=== PATIENT | female | born 1965 | race Caucasian/White ===

== ENCOUNTER 2017-08-26 02:22 | Emergency (ER) | payer BC ==
[~2017-08-26] VITALS: Ht 162.6 cm; Wt 69.9 kg
[~2017-08-26 02:22] MED LIST: BUPR100T3 PO; GABA600T7 PO; LORA-476 PO; OXYC60TE PO; PANT40EC PO; PREMARIN PO; QUET100T PO; SYN.1 PO; URSO300C14 PO; VYBRID PO
[2017-08-26 02:33] VITALS: BP 146/70
--- NOTE | 2017-08-26 02:35 | NUR ---
Lesley rose in [facility] - 08/26/17 at 0236 by XAVIER PT TAKEN TO BED 3
--- NOTE | 2017-08-26 02:44 | NUR ---
PT TAKEN TO BED 3
[2017-08-26] MEDS ORDERED: KETOROLAC 30 MG/ML VIAL IM ONE (02:50)
--- NOTE | 2017-08-26 02:50 | NUR ---
52 Y/O F W/C/O rt and lt flank pain s/p 5 days no n/v/d at this time. ER MADE AWARE.
--- NOTE | 2017-08-26 02:50 | NUR ---
LAUREN PIZARRO AT BEDSIDE EVALAUTING PT.
[2017-08-26 02:57] LABS: APPEARANCE,URINE CLOUDY (CLEAR); BILIRUBIN,URINE 2+ (NEGATIVE); BLOOD, URINE TRACE-L (NEGATIVE); COLOR,URINE YELLOW (YELLOW); LEUKOCYTE ESTERASE ,URINE 2+ (NEGATIVE); NITRITE, URINE NEGATIVE (NEGATIVE); UGLUCOSE NEGATIVE (NEGATIVE)
[2017-08-26] MEDS ORDERED: KETOROLAC 30 MG/ML VIAL ONE (03:03)
[2017-08-26 03:13] LABS: RBC,URINE 0-5 (RARE) /HPF (0-5)
[2017-08-26 03:14] LABS: WBC,URINE TOO MANY TO COUNT /HPF (0-5)
[2017-08-26] MEDS ORDERED: CIPROFLOXACIN 250 MG TAB PO ONE (03:50)
[2017-08-26] MEDS ORDERED: NACL 0.9% 1,000 ML IV ONE (03:50)
[2017-08-26] MEDS ORDERED: ONDANSETRON 4 MG ODT PO ONE (03:50)
[2017-08-26 03:59] LABS: BASOPHILS % (AUTO) 0.7 % (0.0-2.0); EOSINOPHILS # (AUTO) 0.2 K/uL (0-0.4); EOSINOPHILS % (AUTO) 3.7 % (0.0-4.0); HEMOGLOBIN 11.6 g/dL (12.0-16.0); LYMPHOCYTES # (AUTO) 1.3 K/uL (2.5-16.5); LYMPHOCYTES % (AUTO) 22.8 % (20.5-51.1); MEAN CORPUSCULAR HEMOGLOBIN 30 pg (27-31); MEAN CORPUSCULAR HGB CONC 33 g/dL (33-37); MEAN CORPUSCULAR VOLUME 91 fL (80-94); MONOCYTES # (AUTO) 0.4 K/uL (0.8-1.0); MONOCYTES % (AUTO) 7.7 % (1.7-9.3); NEUTROPHILS # (AUTO) 3.7 K/uL (1.8-7.7); NEUTROPHILS % (AUTO) 65.1 % (42.2-75.2); PLATELET COUNT (AUTO) 228 K/uL (140-450); RED BLOOD CELL COUNT(AUTO) 3.85 MIL/uL (4.20-5.40); WHITE BLOOD COUNT (AUTO) 5.6 K/uL (4.8-10.8)
[2017-08-26] MEDS ORDERED: CIPROFLOXACIN 250 MG TAB ONE (04:01)
[2017-08-26] MEDS ORDERED: ONDANSETRON 4 MG ODT ONE (04:02)
[2017-08-26] MEDS ORDERED: MORPHINE SULFATE 2 MG/ML SYR IVP ONE (04:10)
[2017-08-26] MEDS ORDERED: MORPHINE SULFATE 2 MG/ML SYR ONE (04:10)
[2017-08-26 04:23] LABS: ANION GAP 13.2 (8-16); CARBON DIOXIDE 30.4 mmol/L (21-32); CREATININE 0.9 mg/dL (0.6-1.3); POTASSIUM 3.6 mmol/L (3.5-5.1); TOTAL BILIRUBIN 7.1 mg/dL (0.0-1.0)
[2017-08-26 04:59] VITALS: BP 127/65
== END 2017-08-26 04:59 | disposition home or self-care (01) ==
LOC: MED 02:22
DX: R74.0 Nonspecific elevation of levels of transaminase and lactic acid dehydrogenase [LDH] (principal); J45.909 Unspecified asthma, uncomplicated; E03.9 Hypothyroidism, unspecified; E78.00 Pure hypercholesterolemia, unspecified; Z79.899 Other long term (current) drug therapy; Z88.0 Allergy status to penicillin; Z88.2 Allergy status to sulfonamides
CPT/HCPCS: 36415; 80053; 81001; 81025; 85025; 87086; 96361; 96372; 96374; 99284; J1885; J2270; S0119

== ENCOUNTER 2018-03-28 14:09 | Emergency (ER) | payer BC, OTHER ==
[~2018-03-28] VITALS: Ht 165.1 cm; Wt 73.5 kg
[2018-03-28 14:36] VITALS: BP 140/72
--- NOTE | 2018-03-28 14:45 | NUR ---
PT AMBULATES W/ STEADY GAIT TO THE LOBBY AT THIS TIME TO WAIT FOR THE NEXT AVAILABLE BED. GIVEN A CUP FOR URINE SAMPLE.
--- NOTE | 2018-03-28 15:05 | NUR ---
PT TAKEN TO BED 9 AT THIS TIME, AMBULATORY W/ STEADY GAIT.
--- NOTE | 2018-03-28 15:10 | NUR ---
53 YO F BIB SELF W/ C/O HEMATURIA. PT REPORTS THAT SHE HAD THE FIRST EPISODE OF BLEEDING ON THURSDAY. REPORTS THAT IT IS NOT EVERYTIME, DOES NOT SEE BLOOD ON THE UNDERWEAR. REPORTS ITCHING AND BURNING AND PELVIC PRESSURE. REPORTS RETENTION, FREQUENCY, AND URGENCY. REPORTS STRONG, FOUL-SMELL TO HER URINE. DENIES N/V/D/FEVERS. AAOX4, GCS 15, CMS INTACT, RR EVEN AND UNLABORED, LUNGS CLEAR. ABD SOFT, NON-TENDER. PT REPORTS THAT CIPRO, KEFLEX, AND Z-PACK DO NOT WORK WELL FOR HER. PT REPORTS LIVER ENZYMES ARE ALWAYS ELEVATED. PT POSITION TO COMFORT. AWAITING ER MD UD. WILL CONTINUE TO MONITOR.
[2018-03-28] MEDS ORDERED: DEXAMETHASONE 10 MG/ML VIAL IM ONE (16:30)
[2018-03-28] MEDS ORDERED: cefTRIAXone 1,000 MG in LIDOCAINE 1% ***ER ONLY *** 2.1 ML IM ONE (16:30)
[2018-03-28] MEDS ORDERED: LEVOFLOXACIN 500 MG TAB PO ONE (16:30)
[2018-03-28 16:48] LABS: APPEARANCE,URINE SL CLOUDY (CLEAR); BILIRUBIN,URINE 1+ (NEGATIVE); BLOOD, URINE 2+ (NEGATIVE); COLOR,URINE YELLOW (YELLOW); LEUKOCYTE ESTERASE ,URINE 2+ (NEGATIVE); NITRITE, URINE POSITIVE (NEGATIVE); PH,URINE 5.5 (5.0-9.0); UGLUCOSE NEGATIVE (NEGATIVE)
[2018-03-28 16:55] LABS: RBC,URINE TOO NUMEROUS TO COUN /HPF (0-5); WBC,URINE TOO MANY TO COUNT /HPF (0-5)
--- NOTE | 2018-03-28 17:02 | NUR ---
patient requested for d/c paperwork; er md terry made aware
[2018-03-28 17:30] VITALS: BP 139/71
--- NOTE | 2018-03-28 17:30 | NUR ---
Patient discharged with v/s stable. Written and verbal after care instructions given and explained. Patient alert, oriented and verbalized understanding of instructions. Ambulatory with steady gait. All questions addressed prior to discharge. ID band removed. Patient advised to follow up with PMD. Rx of Levaquin 250mg given. Patient educated on indication of medication including possible reaction and side effects. Opportunity to ask questions provided and answered.
== END 2018-03-28 17:30 | disposition home or self-care (01) ==
LOC: MED 14:09
DX: N39.0 Urinary tract infection, site not specified (principal); J45.909 Unspecified asthma, uncomplicated; G89.29 Other chronic pain; K72.90 Hepatic failure, unspecified without coma; Z88.0 Allergy status to penicillin; Z88.2 Allergy status to sulfonamides; Z79.899 Other long term (current) drug therapy
CPT/HCPCS: 81001; 81025; 87086; 87186; 96372; 99284; J0696; J1100; J2001